=== PATIENT | male | born 1955 | race Caucasian/White ===

== ENCOUNTER → 2018-11-26 | Outpatient (CLI) | payer MEDICARE, OTHER | END | disposition home or self-care (01) | LOC: PCVCCLINIC 12:30 | PROVIDERS: ATTEND Internal Medicine | DX: I25.10 Atherosclerotic heart disease of native coronary artery without angina pectoris (principal); I10 Essential (primary) hypertension; E78.5 Hyperlipidemia, unspecified; G47.33 Obstructive sleep apnea (adult) (pediatric); I65.21 Occlusion and stenosis of right carotid artery; Z79.82 Long term (current) use of aspirin | CPT/HCPCS: 36415; 80061; 93005; G0463 ==

== ENCOUNTER → 2019-01-06 | Outpatient (CLI) | payer MEDICARE, OTHER ==
[~2019-01-06] MED LIST: REGADENOSON 0.4 MG/5 ML DISP.SYRIN. IV ONE
--- NOTE | 2019-01-06 08:42 | PCVCIMAG ---
APPROVED REPORT Indications Stenosis Risk Factors Hypertension: Hyperlipidemia CAD, Doppler Spectral Velocity Analysis PSV / EDVPSV / EDV ECA (R) 173 / 20 cm/sECA (L) 165 / 23 cm/s dICA (R) 106 / 39 cm/sdICA (L) 83 / 32 cm/s Kecia (R) 97 / 31 cm/smICA (L) 174 / 52 cm/s pICA (R) 100 / 31 cm/spICA (L) 227 / 77 cm/s Bulb (R) 81 / 18 cm/sBulb (L) 148 / 35 cm/s dCCA (R) 113 / 24 cm/sdCCA (L) 123 / 29 cm/s mCCA (R) 118 / 21 cm/smCCA (L) 129 / 24 cm/s Vert (R) 46 / 9 cm/sVert (L) 47 / 11 cm/s ICA/CCA 0.94ICA/CCA 1.85 Basic Measurements Blood Pressure: Pulses: Right Left RightLeft Brachial(Sitting) 144/42hlHs972/82mmHgTemporal Real Time B-Mode Imaging Vert. (R)AntegradeVert. (L)Antegrade Findings RIGHT CAROTID: The carotid bulb has moderate plaque. The proximal internal carotid artery shows <40% stenosis. The common carotid artery shows no significant stenosis. The external carotid artery shows 60% stenosis. LEFT CAROTID: The carotid bulb has moderate plaque. The proximal internal carotid artery shows 70% stenosis. The common carotid artery shows no significant stenosis. The external carotid artery shows 60% stenosis. Conclusion <40% stenosis of the right internal carotid artery with moderate plaque. 70% stenosis of the left internal carotid artery with moderate plaque.
--- NOTE | 2019-01-06 09:19 | PCVCIMAG ---
APPROVED REPORT Study performed: 01/06/2019 08:17:03 EXAM: Comprehensive 2D, Doppler, and color-flow Echocardiogram Patient Location: Echo lab Status: routine BSA: 2.57 HR: 89 bpmBP: 140/82 mmHg Rhythm: NSR Other Information Study Quality: Technically Difficult Risk Factors: Cardiac Risk Factors: HTN, Hyperlipidemia, FHX of CAD Indications CAD Hypertension/HDD Stent 2D Dimensions IVSd: 13.92 (7-11mm)LVOT Diam: 24.58 (18-24mm) LVDd: 50.33 mm PWd: 14.32 (7-11mm)Ascending Ao: 35.31 (22-36mm) LVDs: 38.20 (25-40mm) Left Atrium: 44.90 (27-40mm) Aortic Root: 31.70 mm LV Single Plane 4CH: 72.98 % LV Single Plane 2CH: 67.12 % Biplane EF: 69.7 % Volumes Left Atrial Volume (Systole) Single Plane 4CH: 44.16 mLSingle Plane 2CH: 38.12 mL LA ESV Index: 16.00 mL/m2 Aortic Valve AoV Peak Kenrick.: 1.59 m/s AO Peak Gr.: 10.14 mmHg Mitral Valve E/A Ratio: 0.8 MV Decel. Time: 180.03 ms MV E Max Kenrick.: 0.77 m/s MV A Kenrick.: 0.91 m/s TDI E/Lateral E': 9.63E/Medial E': 11.00 Medial E' Kenrick.: 0.07 m/s Lateral E' Kenrick.: 0.08 m/s Pulmonary Valve PV Peak Gr.: 5.56 mmHg Pulmonary Vein P Vein S: 0.58 m/sP Vein A: 0.36 m/s P Vein D: 0.59 m/sP Vein A Dur.: 79.6 msec P Vein S/D Ratio: 0.98 Left Ventricle The left ventricle is normal size. There is normal LV segmental wall motion. There is normal left ventricular wall thickness. Left ventricular systolic function is normal. The left ventricular ejection fraction is within the normal range. LVEF is 60%. Mild diastolic dysfunction is present (impaired relaxation pattern). Right Ventricle The right ventricle is normal size. The right ventricular systolic function is normal. Atria The left atrium size is normal. The right atrium size is normal. Aortic Valve The aortic valve is mildly calcified. No aortic regurgitation is present. There is no aortic valvular stenosis. Mitral Valve The mitral valve is normal in structure. There is no mitral valve regurgitation noted. No evidence of mitral valve stenosis. Tricuspid Valve The tricuspid valve is normal in structure. There is no tricuspid valve regurgitation noted. Pulmonic Valve The pulmonary valve is normal in structure. There is no pulmonic valvular regurgitation. Great Vessels The aortic root is normal in size. IVC is normal in size and collapses >50% with inspiration. Pericardium There is no pericardial effusion. <Conclusion> Left ventricular systolic function is normal. There is normal LV segmental wall motion. LVEF is 60%. Mild diastolic dysfunction The aortic valve is mildly calcified. No aortic regurgitation or stenosis. The mitral valve is normal in structure. No mitral valve regurgitation. Pulmonary artery systolic pressure could not be reliably ascertained There is no pericardial effusion.
--- NOTE | 2019-01-06 17:04 | PCVCIMAG ---
APPROVED REPORT Imaging Protocol: Rest Tc-99m/Stress Tc-99m 1 day Study performed: 01/06/2019 09:18:13 Indication: CAD Patient Location: Out-Patient Stress Nurse: Ingrid Tavarez RN, Yolanda Tellez RN [place] Tech:Del JOSESITO Lassiter Ht: 6 ft 3 in Wt: 290 lbs BSA: 2.57 m2 HR: 80 bpm BP: 154/71 mmHg BMI: 36.2 Rhythm: Sinus Rhythm with Right Bundle Branch Block Medical History Medical History: PCI, Age, Hyperlipidemia, HTN, CVD, CAD, [place] 2012 Medications: ASA, Atenolol, Lasix, Lisinopril, Pravachol Allergies: No known drug allergies Exercise History: Sedentary Meds Held (24 hrs): Atenolol Resting Data Rest SPECT myocardial perfusion imaging was performed in supine position 45 minutes following the intravenous injection of 10.9 mCi of Tc-99m Sestamibi. Time of rest injection: 0900 Date: 01/06/2019 Administration Route: IV Administration Site: Right AC Pharmacologic Stress Pharmacologic stress test was performed by injecting Regadenoson 0.4 mg IV push over 10-15 seconds immediately followed by the intravenous injection of 31.0 mCi of Tc-99m Sestamibi. Time of stress injection: 1000 Date: 01/06/2019 Administration Route: IV Administration Site: Right AC Gated Stress SPECT was performed 45 minutes after stress injection. The images were gated to evaluate regional wall motion and calculate left ventricular ejection fraction. Stress Test Details Stress Test: Pharmacologic stress testing performed using 0.4 mg of regadenoson per 5 mL given IV over 10 seconds. Reason for pharmacologic stress test: physical limitation. HRMax Heart Rate (APMHR): 155 bpm Resting HR: 80 bpmTarget HR (85% APMHR): 131 bpm Max HR Achieved: 92 bpm % of APMHR: 59 Recovery HR: 88 bpm BP Resting BP: 154/71 mmHg Max BP: 153/63 mmHg Recovery BP: 137/67 mmHg ECG Resting ECG: Sinus Rhythm, RBBB Stress ECG: Sinus Rhythm, RBBB ST Change: None Maximum ST Deviation: 0 mm Arrhythmia: VPC's Recovery ECG: Sinus Rhythm, RBBB Recovery ST Change: Normal Recovery ST Deviation: 0 mm Clinical Reason for Termination: Completed protocol Stress Symptoms: Dyspnea, Lightheaded Symptoms resolved during recovery. Stress ECG Conclusion ECG: Non-ischemic Clinical: Non-ischemic Study Quality Study: Good Study Data Post stress, the left ventricular ejection was 52%.. SSS: 0 SRS: 3 SDS: 0 TID = 1.06. Perfusion No evidence of stress induced ischemia or prior myocardial infarction. Wall Motion Normal left ventricular function with no regional wall motion abnormalities. Nuclear Conclusion No evidence of stress induced ischemia or prior myocardial infarction. Post stress, the left ventricular ejection was 52%. No prior study available for comparison. Interpreted by: Theo Jj MD Electronically Approved: 01/06/2019 13:55:20 <Conclusion> ECG: Non-ischemic Clinical: Non-ischemic
== END | disposition home or self-care (01) ==
LOC: PCVCIMAG 07:54
PROVIDERS: ATTEND Internal Medicine
DX: I65.23 Occlusion and stenosis of bilateral carotid arteries (principal); I25.10 Atherosclerotic heart disease of native coronary artery without angina pectoris; I10 Essential (primary) hypertension; G47.33 Obstructive sleep apnea (adult) (pediatric); E78.5 Hyperlipidemia, unspecified
CPT/HCPCS: 78452; 93017; 93306; 93880; A9500; J2785